=== PATIENT | male | born 2000 | race Caucasian/White ===

== ENCOUNTER 2021-01-17 00:30 | Observation (INO) ==
[2021-01-17] MEDS ORDERED: ALBUT/IPRATROP 3MG/0.5MG NEB 3 ML VIAL NEB STA (00:51)
--- NOTE | 2021-01-17 00:55 | Emergency Department Note ---
History of Present Illness General Chief complaint: Respiratory Problems Stated complaint: ASTHMA ATTACK-WHEEZING,TIGHTNESS IN CHEST Time Seen by Provider: 01/17/21 00:44 History of Present Illness This is a 20-year-old male with a history of asthma that presents to the emergency department via private vehicle with complaints of "asthma attack, wheezing, tightness in chest". The patient notes a history of asthma, last asthma attack being about 10 years ago. He no longer has a rescue inhaler. This evening he was participating in a game of basketball. Towards the end of the game he developed some wheezing that gradually worsened throughout the evening therefore prompting arrival here. He also notes some tightness in the chest and mild shortness of breath. He has felt similar with previous asthma exacerba tions. He denies any other pertinent past medical history, surgeries or allergies. No fevers or chills. He denies any current illness but does state that a few weeks ago he had cold-like symptoms. Home Medications Medication Instructions Recorded Confirmed Type No Known Home Medications 01/17/21 01/17/21 History Allergies Allergy/AdvReac Type Severity Reaction Status Date / Time No Known Allergies Allergy Unverified 01/17/21 01:45 Past Med/Surg History Medical History Asthma Surgical History No pertinent past surgical history Social History Smoking Status: Never smoker Feels Safe at Home: Yes Review of Systems A total of 10 systems reviewed and were otherwise negative Physical Exam Vital Signs Vital Signs - 24 hr 01/17/21 00:35 01/17/21 00:56 01/17/21 01:07 Temperature 37.0 C Temperature Source Temporal Artery Scan Pulse Rate 80 79 Pulse Rate [Finger] 78 Respiratory Rate 22 18 18 Blood Pressure 102/60 135/77 Blood Pressure [Right Arm] 126/61 Blood Pressure Mean 74 96 Blood Pressure Mean [Right Arm] 82 Pulse Oximetry 97 96 98 Oxygen Delivery Method Room Air Room Air Sepsis Recent Fever Within 48 Hours No Sepsis New/Unexplained Change in Mental Status No Sepsis Action Taken by Nursing No Action Required 01/17/21 01:21 01/17/21 01:30 01/17/21 02:00 Temperature Temperature Source Pulse Rate 86 85 Pulse Rate [Finger] Respiratory Rate 20 20 Blood Pressure 125/66 137/69 Blood Pressure [Right Arm] Blood Pressure Mean 85 91 Blood Pressure Mean [Right Arm] Pulse Oximetry 98 99 99 Oxygen Delivery Method Room Air Sepsis Recent Fever Within 48 Hours Sepsis New/Unexplained Change in Mental Status Sepsis Action Taken by Nursing 01/17/21 03:00 Temperature Temperature Source Pulse Rate 85 Pulse Rate [Finger] Respiratory Rate 24 Blood Pressure 132/66 Blood Pressure [Right Arm] Blood Pressure Mean 88 Blood Pressure Mean [Right Arm] Pulse Oximetry 99 Oxygen Delivery Method Sepsis Recent Fever Within 48 Hours Sepsis New/Unexplained Change in Mental Status Sepsis Action Taken by Nursing VITAL SIGNS - Vital signs and nursing notes were reviewed. Stable and afebrile. GENERAL -20-year-old male appearing his stated age who is in no acute distress. Communicates well with provider and answers questions appropriately. SKIN - Without rashes. No meningeal or petechial rash. HEAD - NC/AT. EYES - PERRL with EOMI bilaterally. Sclera anicteric. EARS - No deformities of external structures noted on gross examination bilaterally. NOSE - Midline and without cyanosis. No epistaxis or purulent drainage noted. MOUTH/OROPHARYNX - Without perioral cyanosis. Buccal mucosa pink and moist and without leukoplakia. Tongue midline with equal elevation of palate bilaterally. No tonsillar hypertrophy, erythema, or exudates noted. Good dentition noted. No drooling, stridor, trismus or tripoding. Normal phonation. NECK - Neck with FROM. No nuchal rigidity. LUNGS - Chest wall symmetric without accessory muscle use, intercostals retractions, or central cyanosis. Mild expiratory wheeze left greater than right. CARDIAC - RRR with S1/S2. No murmur, rubs, or gallops appreciated. EXTREMITIES - No clubbing or peripheral cyanosis. +5/5 strength noted in UE/LE bilaterally. NEUROLOGIC - Cranial nerves II through XII grossly intact. PSYCH - A&O, and cooperates fully with examiner. Pt is very pleasant and interacts well with examiner. Course Administered Medications Discontinued Medications Albuterol (Albut/Ipratrop 3mg/0.5mg Neb 3 Ml Vial) 3 ml NEB NOW STA Stop: 01/17/21 00:52 Last Admin: 01/17/21 01:18 Dose: 3 ml Documented by: [id number] Aspirin (Aspirin Chew 324 Mg) 324 mg PO NOW STA Stop: 01/17/21 03:39 Last Admin: 01/17/21 04:18 Dose: 324 mg Documented by: [id number] Colchicine (Colchicine 0.6 Mg Tab) 0.6 mg PO NOW ONE Stop: 01/17/21 03:39 Last Admin: 01/17/21 04:19 Dose: 0.6 mg Documented by: [id number] Dexamethasone 10 mg/ Syringe 2.5 mls @ 1 mls/min IV ONE ONE Stop: 01/17/21 03:40 Last Admin: 01/17/21 04:19 Dose: 1 mls/min Documented by: [id number] Ioversol (Optiray 320 125ml) 120 ml IV ONCE ONE Stop: 01/17/21 02:15 Last Admin: 01/17/21 02:14 Dose: 120 ml Documented by: [id number] Medical Decision Making Laboratory Data Result diagrams: 01/17/21 01:05 01/17/21 01:05 Lab Results 01/17/21 01/17/21 01/17/21 Range/Units 01:05 01:05 01:05 WBC 13.36 H (4.8-10.8) K/uL RBC 4.76 (4.7-6.1) M/uL Hgb 14.6 (14.0-18.0) g/dL Hct 41.5 L (42-52) % MCV 87.2 (80-100) fL MCH 30.7 (25-34) pg MCHC 35.2 (32-36) g/dL RDW Std Deviation 41.0 (36.4-46.3) fL RDW Coeff of Shanna 12.7 (11.5-14.5) % Plt Count 233 (130-400) K/uL MPV 11.0 H (7.4-10.4) fL Immature Gran % (Auto) 0.2 % Neut % (Auto) 76.4 % Lymph % (Auto) 15.3 % [place] % (Auto) 7.8 % Eos % (Auto) 0.2 % Baso % (Auto) 0.1 % Neut # (Auto) 10.20 H (1.4-6.5) K/uL Lymph # (Auto) 2.04 (1.2-3.4) K/uL [place] # (Auto) 1.04 H (0.11-0.59) K/uL Eos # (Auto) 0.03 (0-0.5) K/uL Baso # (Auto) 0.02 (0-0.2) K/uL Immature Gran # (Auto) 0.03 H (0.00-0.02) K/uL ESR 12 (0-15) mm/hr Sodium 138 (136-145) mmol/L Potassium 3.6 (3.5-5.1) mmol/L Chloride 105 (98-107) mmol/L Carbon Dioxide 25 (21-32) mmol/L Anion Gap 8.0 (3-11) BUN 28 H (7-18) mg/dl Creatinine 1.28 (0.6-1.4) mg/dl Est Cr Clr Drug Dosing 92.5 ml/min Est GFR ( Amer) 92.1 ml/min Est GFR (Non-Af Amer) 79.5 ml/min BUN/Creatinine Ratio 21.9 H (10-20) Glucose 89 (70-99) mg/dl Calcium 9.0 (8.5-10.1) mg/dl Total Bilirubin 0.6 (0.2-1) mg/dl AST 67 H (15-37) U/L ALT 37 (12-78) Alkaline Phosphatase 47 (45-117) U/L Troponin I 0.304 H* (0-0.045) ng/ml C-Reactive Protein < 0.29 (0-0.29) mg/dl Total Protein 8.1 (6.4-8.2) gm/dl Albumin 4.4 (3.4-5.0) gm/dl Globulin 3.7 (2.5-4.0) gm/dl Albumin/Globulin Ratio 1.2 (0.9-2) Anaplasma Smear Lyme Disease IgG Ab (Negative) Lyme Disease IgM Ab (Negative) SARS-CoV-2 (PCR) (Negative) Influenza Type A (PCR) (Neg) Influenza Type B (PCR) (Neg) RSV (RT-PCR) (Neg) 01/17/21 01/17/21 01/17/21 Range/Units 01:05 02:00 02:15 WBC (4.8-10.8) K/uL RBC (4.7-6.1) M/uL Hgb (14.0-18.0) g/dL Hct (42-52) % MCV (80-100) fL MCH (25-34) pg MCHC (32-36) g/dL RDW Std Deviation (36.4-46.3) fL RDW Coeff of Shanna (11.5-14.5) % Plt Count (130-400) K/uL MPV (7.4-10.4) fL Immature Gran % (Auto) % Neut % (Auto) % Lymph % (Auto) % [place] % (Auto) % Eos % (Auto) % Baso % (Auto) % Neut # (Auto) (1.4-6.5) K/uL Lymph # (Auto) (1.2-3.4) K/uL [place] # (Auto) (0.11-0.59) K/uL Eos # (Auto) (0-0.5) K/uL Baso # (Auto) (0-0.2) K/uL Immature Gran # (Auto) (0.00-0.02) K/uL ESR (0-15) mm/hr Sodium (136-145) mmol/L Potassium (3.5-5.1) mmol/L Chloride (98-107) mmol/L Carbon Dioxide (21-32) mmol/L Anion Gap (3-11) BUN (7-18) mg/dl Creatinine (0.6-1.4) mg/dl Est Cr Clr Drug Dosing ml/min Est GFR ( Amer) ml/min Est GFR (Non-Af Amer) ml/min BUN/Creatinine Ratio (10-20) Glucose (70-99) mg/dl Calcium (8.5-10.1) mg/dl Total Bilirubin (0.2-1) mg/dl AST (15-37) U/L ALT (12-78) Alkaline Phosphatase (45-117) U/L Troponin I (0-0.045) ng/ml C-Reactive Protein (0-0.29) mg/dl Total Protein (6.4-8.2) gm/dl Albumin (3.4-5.0) gm/dl Globulin (2.5-4.0) gm/dl Albumin/Globulin Ratio (0.9-2) Anaplasma Smear See Comment Lyme Disease IgG Ab Negative (Negative) Lyme Disease IgM Ab Negative (Negative) SARS-CoV-2 (PCR) POSITIVE A* (Negative) Influenza Type A (PCR) Negative (Neg) Influenza Type B (PCR) Negative (Neg) RSV (RT-PCR) Negative (Neg) 01/17/21 Range/Units 03:12 WBC (4.8-10.8) K/uL RBC (4.7-6.1) M/uL Hgb (14.0-18.0) g/dL Hct (42-52) % MCV (80-100) fL MCH (25-34) pg MCHC (32-36) g/dL RDW Std Deviation (36.4-46.3) fL RDW Coeff of Shanna (11.5-14.5) % Plt Count (130-400) K/uL MPV (7.4-10.4) fL Immature Gran % (Auto) % Neut % (Auto) % Lymph % (Auto) % [place] % (Auto) % Eos % (Auto) % Baso % (Auto) % Neut # (Auto) (1.4-6.5) K/uL Lymph # (Auto) (1.2-3.4) K/uL [place] # (Auto) (0.11-0.59) K/uL Eos # (Auto) (0-0.5) K/uL Baso # (Auto) (0-0.2) K/uL Immature Gran # (Auto) (0.00-0.02) K/uL ESR (0-15) mm/hr Sodium (136-145) mmol/L Potassium (3.5-5.1) mmol/L Chloride (98-107) mmol/L Carbon Dioxide (21-32) mmol/L Anion Gap (3-11) BUN (7-18) mg/dl Creatinine (0.6-1.4) mg/dl Est Cr Clr Drug Dosing ml/min Est GFR ( Amer) ml/min Est GFR (Non-Af Amer) ml/min BUN/Creatinine Ratio (10-20) Glucose (70-99) mg/dl Calcium (8.5-10.1) mg/dl Total Bilirubin (0.2-1) mg/dl AST (15-37) U/L ALT (12-78) Alkaline Phosphatase (45-117) U/L Troponin I 0.379 H* (0-0.045) ng/ml C-Reactive Protein (0-0.29) mg/dl Total Protein (6.4-8.2) gm/dl Albumin (3.4-5.0) gm/dl Globulin (2.5-4.0) gm/dl Albumin/Globulin Ratio (0.9-2) Anaplasma Smear Lyme Disease IgG Ab (Negative) Lyme Disease IgM Ab (Negative) SARS-CoV-2 (PCR) (Negative) Influenza Type A (PCR) (Neg) Influenza Type B (PCR) (Neg) RSV (RT-PCR) (Neg) Imaging Data Radiologist's Impression: Chest X-Ray 01/17/21 00:51 XR chest 1V portable CLINICAL HISTORY: wheezing. COMPARISON STUDY: No previous studies for comparison. TECHNIQUE: 1 view of the chest FINDINGS: Single frontal view of the chest demonstrates the cardiomediastinal silhouette to be within normal limits. The lungs are clear of alveolar opacities. There is no evidence for pleural effusion. There is no evidence for vascular congestion. There is no acute osseous pathology. IMPRESSION: No acute cardiopulmonary disease. ACT 112: Negative or not required by law. Electronically signed by: Jus Lopez M.D. 01/17/2021 7:12 AM Chest CTA 01/17/21 01:53 CT angio chest PE protocol CLINICAL HISTORY: dyspnea . Reported history of asthma. Wheezing COMPARISON STUDY: Portable chest from 01/17/2021 CT DOSE: 359.33 mGy.cm TECHNIQUE: CT Angio of the chest was performed.followed by image post processing with coronal, and sagittal MIP reformats. Contrast Volume: Optiray 320, 120 ml FINDINGS: Vasculature: There is homogeneous perfusion of the pulmonary vasculature bilaterally. No intraluminal filling defects or evidence for pulmonary embolus is seen. Airway: The airway is clear. No endobronchial lesion is identified. Lungs: There is very mild Central endobronchial thickening present. The lungs are otherwise clear of acute alveolar opacities, air bronchograms or pulmonary nodules. Pleura: There is no evidence for pleural effusion. There is no evidence for pneumothorax. Mediastinum: There is no evidence for pathologic adenopathy. The heart size is within normal limits. The thoracic aorta is within normal limits. There is no evidence for pericardial effusion. Upper abdomen:The adrenal glands are normal bilaterally. There is evidence for small sliding-type hiatal hernia. The stomach is distended with liquid and food stuff. Osseous structures: There is no acute osseous pathology. Impression: 1. No CTA evidence for pulmonary embolus. 2. Very mild Central endobronchial thickening. Otherwise, no acute chest disease. ACT 112: Negative or not required by law. Electronically signed by: Jus Lopez M.D. 01/17/2021 7:29 AM CTA CHEST: Some breathing motion artifact. No PE visualized. No aortic dissection or aneurysm. Lungs clear Radiologist: Saroj Benz M.D. Study ready at 02:17 and initial results transmitted at 03:00 [facility] Narrative Patient was seen and evaluated as above in room A02. Review was performed of triage nursing notes and vital signs. After obtaining a thorough history and physical examination the above work up was performed. Patient presents to us today with some wheezing that developed after playing basketball. Otherwise stable and well-appearing. Options of care were discussed with the patient. IV access was established. Labs were drawn. He was given a DuoNeb breathing treatment. Labs reveal leukocytosis 13.36 without significant anemia. BUN elevated at 28. Mild AST elevation at 67. Patient does have a troponin elevation at .304. Repeat troponin 0.379. EKG on arrival reveals sinus rhythm at a rate of 76 bpm. QTc 391. QRS 98. ST elevations noted. Do not suspect STEMI, patient denies any chest pain and is actually noting improvement upon arrival here to the ED in regard to his wheezing and shortness of breath. Chest x-ray negative. CTA was obtained of the chest and was negative for acute process. Covid testing positive. I suspect the patient is likely experiencing a Covid related myocarditis. I do believe he would benefit from inpatient management. Case discussed with the hospitalist. Please refer to further documentation regarding his stay. Case was discussed with the attending physician. An order was placed for continuous cardiac monitoring. The monitor shows a rate of 65 with sinus rhythm. GCS: 15 IMPRESSION: Chest Pain In the evaluation and treatment of this patient, the following differential diagnoses were considered: ND, ASC, Dysrhythmia, Angina, Mediastinitis, GERD, Esophagitis, PE, Pneumonia, myocarditis, bronchitis, Costochondritis, Rib Fracture, Zoster, among others Impression & Plan Acute myopericarditis, COVID-19, Elevated troponin I level Discharge Plan Visit Data Chief Complaint: Respiratory Problems Stated Complaint: ASTHMA ATTACK-WHEEZING,TIGHTNESS IN CHEST ED Provider: Day [facility] ED Midlevel Provider: Juan Manuel Elam Discharge Problem: Acute myopericarditis, COVID-19, Elevated troponin I level Patient Disposition: Admitted As Inpatient Condition: Good Discharge Instructions Interventions: ED Discharge Assessment Last Done: 01/17/21 05:40
[2021-01-17 01:17] LABS: Basophils # (auto) 0.02 K/uL (0-0.2); Basophils % (auto) 0.1 %; Eosinophils # (auto) 0.03 K/uL (0-0.5); Eosinophils % (auto) 0.2 %; Hematocrit (blood only) 41.5 % (42-52); Hemoglobin 14.6 g/dL (14.0-18.0); Immature Granulocytes # (auto) 0.03 K/uL (0.00-0.02); Immature Granulocytes % (auto) 0.2 %; Lymphocytes # (auto) 2.04 K/uL (1.2-3.4); Lymphocytes % (auto) 15.3 %; Mean Corpuscular Hemoglobin 30.7 pg (25-34); Mean Corpuscular Hgb Conc 35.2 g/dL (32-36); Mean Corpuscular Volume 87.2 fL (80-100); Monocytes # (auto) 1.04 K/uL (0.11-0.59); Monocytes % (auto) 7.8 %; Neutrophils % (auto) 76.4 %; Platelet Count 233 K/uL (130-400); RDW Coefficient of Variation 12.7 % (11.5-14.5); Red Blood Count 4.76 M/uL (4.7-6.1); White Blood Count 13.36 K/uL (4.8-10.8)
[2021-01-17 01:36] LABS: Alanine Aminotransferase 37 (12-78); Albumin Level 4.4 gm/dl (3.4-5.0); Aspartate Aminotransferase 67 U/L (15-37); BUN Creatinine Ratio 21.9 (10-20); Blood Urea Nitrogen 28 mg/dl (7-18); Carbon Dioxide 25 mmol/L (21-32); Chloride 105 mmol/L (98-107); Creatinine Clr Calc Pharmacy 92.5 ml/min; Est GFR (African American) 92.1 ml/min; Est GFR (Non-African American) 79.5 ml/min; Glucose 89 mg/dl (70-99); Potassium 3.6 mmol/L (3.5-5.1); Sodium 138 mmol/L (136-145)
[2021-01-17 01:44] LABS: Albumin Globulin Ratio 1.2 (0.9-2); Alkaline Phosphatase 47 U/L (45-117); Bilirubin,Total 0.6 mg/dl (0.2-1); Globulin 3.7 gm/dl (2.5-4.0); Total Protein 8.1 gm/dl (6.4-8.2); Troponin I 0.304 ng/ml (0-0.045)
[2021-01-17 02:11] LABS: C Reactive Protein < 0.29 mg/dl (0-0.29)
[2021-01-17] MEDS ORDERED: OPTIRAY 320 125ml IV ONE (02:14)
[2021-01-17 03:03] LABS: Influenza A virus by PCR Negative (Neg); Influenza B virus by PCR Negative (Neg); RSV by PCR Negative (Neg)
[2021-01-17 03:19] LABS: Lyme Ab IgG w/WB Rflx Negative (Negative); Lyme Ab IgM w/WB Rflx Negative (Negative)
[2021-01-17 03:21] LABS: SARS CoV2 RNA(COVID-19) InHosp POSITIVE (Negative)
[2021-01-17] MEDS ORDERED: COLCHICINE 0.6 MG TAB PO ONE (03:38)
[2021-01-17] MEDS ORDERED: dexAMETHasone 10 MG in SYRINGE 0 ML IV ONE (03:38)
[2021-01-17] MEDS ORDERED: ASPIRIN CHEW 324 MG PO STA (03:38)
--- NOTE | 2021-01-17 03:50 | History & Physical Report ---
Date of Service January 17, 2021 Assessment & Plan (1) COVID-19: Plan: COVID-19 acute myopericarditis/elevated troponin- The patient will be admitted to telemetry for serial cardiac enzymes, serial EKG's, cardiac rhythm monitoring and a 2-D echocardiogram with Dopplers. Dexamethasone 10 mg IV now, then 6 mg IV every morning Give aspirin 325 mg now, then p.o. twice daily Give colchicine 0.6 mg p.o. now, then p.o. twice daily Consult cardiology (2) Acute myopericarditis: Plan: See above (3) Elevated troponin I level: Plan: See above History of Present Illness Chief Complaint: The patient presents to the emergency department with acute onset of shortness of breath and tightness in chest shortly after playing basketball earlier in the day today. Primary Care Provider: [facility] The patient is a 20-year-old male with no significant past medical history, he notes a few weeks ago he had a brief episode of generalized muscle aches, shortness of breath, dyspnea on exertion and fatigue. This episode resolved without any treatment. He reports he has been playing basketball on a regular basis, and noted today the above symptoms. He denies any recent travels or sick exposures that he is aware of. He has a distant history of asthma, and thought he was may be having an asthma attack. Abnormal laboratories: WBC 13.36, creatinine 1.28. Lyme test negative, flu AMB negative, RSV negative, AST 67, troponin 0.304 Patient was COVID-19 positive Chest x-ray was negative, CT angiography chest negative for PE. Allergies Allergy/AdvReac Type Severity Reaction Status Date / Time No Known Allergies Allergy Unverified 01/17/21 01:45 Home Medications Medication Instructions Recorded Confirmed Type No Known Home Medications 01/17/21 01/17/21 History Past Med/Surg History Social History Smoking Status: Never smoker Feels Safe at Home: Yes Review of Systems Review of Systems: The patient denies palpitations, cough, lower extremity swelling, sore throat, fevers, chills, sweats, nausea, vomiting, diarrhea , co nstipation, abdominal pain, pelvic pain, blood in urine or stool, dysuria, urinary frequency or urgency, lightheadedness, dizziness, headache, memory loss, loss of consciousness, rash, abnormal bruising or bleeding, imbalance, focal or generalized weakness, numbness or tingling in arms or legs, generalized arthralgias or myalgias, back or neck pain, or night sweats. The review of systems is otherwise negative other than for that already noted above, and at least 10 systems have been reviewed. Physical Exam Physical Exam: The patient is awake, alert and oriented 3, well developed and well nourished, normocephalic and atraumatic, lying in bed and in no acute distress. HEENT--PERRL, EOMI, mucous membranes and oropharynx normal. Neck--supple. No JVD. No bruits. Thyroid normal, trachea midline, no adenopathy. Heart--normal S1 and S2. No murmurs, rubs or gallops. Lungs--clear bilaterally, no respiratory distress, no accessory muscle use. Abdomen--normal bowel sounds and soft. Nontender. Nondistended, no hernias or masses, no organomegaly. Extremities--no cyanosis or clubbing. No edema. There are good distal pulses b/l. Dermatologic--normal skin turgor, normal color, no abnormal lymph nodes, no rash. Neurologic--cranial nerves II through XII grossly intact. Rheumatologic--normal range of motion. Psychiatric--normal affect. Results & Data Results & Data ([facility]) Vital Signs (Past 12 Hours) Vital Signs Temp Pulse Pulse Resp BP BP Pulse Ox 01/17/21 03:00 85 24 132/66 99 01/17/21 02:00 85 20 137/69 99 01/17/21 01:30 86 20 125/66 99 01/17/21 01:21 98 01/17/21 01:07 79 18 135/77 98 01/17/21 00:56 78 18 126/61 96 01/17/21 00:35 37.0 C 80 22 102/60 97 Laboratory Results Laboratory Results WBC 13.36 K/uL (4.8-10.8) H 01/17/21 01:05 RBC 4.76 M/uL (4.7-6.1) 01/17/21 01:05 Hgb 14.6 g/dL (14.0-18.0) 01/17/21 01:05 Hct 41.5 % (42-52) L 01/17/21 01:05 MCV 87.2 fL (80-100) 01/17/21 01:05 MCH 30.7 pg (25-34) 01/17/21 01:05 MCHC 35.2 g/dL (32-36) 01/17/21 01:05 RDW Std Deviation 41.0 fL (36.4-46.3) 01/17/21 01:05 RDW Coeff of Shanna 12.7 % (11.5-14.5) 01/17/21 01:05 Plt Count 233 K/uL (130-400) 01/17/21 01:05 MPV 11.0 fL (7.4-10.4) H 01/17/21 01:05 Immature Gran % (Auto) 0.2 % 01/17/21 01:05 Neut % (Auto) 76.4 % 01/17/21 01:05 Lymph % (Auto) 15.3 % 01/17/21 01:05 [place] % (Auto) 7.8 % 01/17/21 01:05 Eos % (Auto) 0.2 % 01/17/21 01:05 Baso % (Auto) 0.1 % 01/17/21 01:05 Neut # (Auto) 10.20 K/uL (1.4-6.5) H 01/17/21 01:05 Lymph # (Auto) 2.04 K/uL (1.2-3.4) 01/17/21 01:05 [place] # (Auto) 1.04 K/uL (0.11-0.59) H 01/17/21 01:05 Eos # (Auto) 0.03 K/uL (0-0.5) 01/17/21 01:05 Baso # (Auto) 0.02 K/uL (0-0.2) 01/17/21 01:05 Immature Gran # (Auto) 0.03 K/uL (0.00-0.02) H 01/17/21 01:05 ESR 12 mm/hr (0-15) 01/17/21 01:05 Sodium 138 mmol/L (136-145) 01/17/21 01:05 Potassium 3.6 mmol/L (3.5-5.1) 01/17/21 01:05 Chloride 105 mmol/L (98-107) 01/17/21 01:05 Carbon Dioxide 25 mmol/L (21-32) 01/17/21 01:05 Anion Gap 8.0 (3-11) 01/17/21 01:05 BUN 28 mg/dl (7-18) H 01/17/21 01:05 Creatinine 1.28 mg/dl (0.6-1.4) 01/17/21 01:05 Est Cr Clr Drug Dosing 92.5 ml/min 01/17/21 01:05 Est GFR ( Amer) 92.1 ml/min 01/17/21 01:05 Est GFR (Non-Af Amer) 79.5 ml/min 01/17/21 01:05 BUN/Creatinine Ratio 21.9 (10-20) H 01/17/21 01:05 Glucose 89 mg/dl (70-99) 01/17/21 01:05 Calcium 9.0 mg/dl (8.5-10.1) 01/17/21 01:05 Total Bilirubin 0.6 mg/dl (0.2-1) 01/17/21 01:05 AST 67 U/L (15-37) H 01/17/21 01:05 ALT 37 (12-78) 01/17/21 01:05 Alkaline Phosphatase 47 U/L (45-117) 01/17/21 01:05 Troponin I 0.379 ng/ml (0-0.045) H* 01/17/21 03:12 C-Reactive Protein < 0.29 mg/dl (0-0.29) 01/17/21 01:05 Total Protein 8.1 gm/dl (6.4-8.2) 01/17/21 01:05 Albumin 4.4 gm/dl (3.4-5.0) 01/17/21 01:05 Globulin 3.7 gm/dl (2.5-4.0) 01/17/21 01:05 Albumin/Globulin Ratio 1.2 (0.9-2) 01/17/21 01:05 Anaplasma Smear See Comment 01/17/21 01:05 Lyme Disease IgG Ab Negative (Negative) 01/17/21 02:15 Lyme Disease IgM Ab Negative (Negative) 01/17/21 02:15 SARS-CoV-2 (PCR) POSITIVE (Negative) A* 01/17/21 02:00 Influenza Type A (PCR) Negative (Neg) 01/17/21 02:00 Influenza Type B (PCR) Negative (Neg) 01/17/21 02:00 RSV (RT-PCR) Negative (Neg) 01/17/21 02:00 Diagnostic Findings [facility] Patient: RISHABH SIMPSON (Male) : 89 Status: ER Date: 01/17/21 02:16 Room #: History: dyspnea Slices: [phone] Priors: Tech: [place] @ [phone] Exams: CTA CHEST Contrast: IV Amt: 120 ml optiray 320 Accession Numbers: [id number] Referring Physician: REFERRED SELF Preliminary Findings Only See Final Report For Complete Findings CTA CHEST: Some breathing motion artifact. No PE visualized. No aortic dissection or aneurysm. Lungs clear Radiologist: Saroj Benz M.D. Study ready at 02:17 and initial results transmitted at 03:00 *This report constitutes a preliminary interpretation only. Non-acute findings felt to be unrelated to the clinical presentation may not be discussed in this report. The study will be interpreted and a final report will be generated by the local Radiologist the following shift. To reach the [facility] radiology department call [phone]. If a discrepancy is found between the preliminary and final interpretations of this study, please notify us via our Client Portal at [email or web address]. You can also fax this report with a description of the discrepancy, or include the final report, to o mable nick fax number [phone]. If faxing, please indicate the severity of discrepancy using one of the following categories: [ ] 1 - Agree/Informational [ ] 2 - Unlikely to Affect Management [ ] 3 - Possible Eventual Change of Management [ ] 4 - Probable Immediate Change of Management For all other patient related information, please fax us at [phone]. [id number] Code Status & VTE Plan Code Status Full code VTE Prophylaxis Plan VTE Prophylaxis will be ordered: Yes PG Care Time/CCT Total # of Minutes Spent Total Time Spent with Patient: Total time spent is greater than 50% in coordination of care (as documented) at patient's floor/unit and/or counseling patient: Coding Level of Care Code 92724 Initial Inpt Care Lvl 3 Diagnoses COVID-19 U07.1 Acute myopericarditis I30.9 Elevated troponin I level R77.8
[2021-01-17] MEDS ORDERED: ONDANSETRON INJ 2 MG/ML 2 ML VIAL IV PRN (05:40)
--- NOTE | 2021-01-17 07:14 | XRay Report ---
XR chest 1V portable CLINICAL HISTORY: wheezing. COMPARISON STUDY: No previous studies for comparison. TECHNIQUE: 1 view of the chest FINDINGS: Single frontal view of the chest demonstrates the cardiomediastinal silhouette to be within normal li mits. The lungs are clear of alveolar opacities. There is no evidence for pleural effusion. There is no evidence for vascular congestion. There is no acute osseous pathology. IMPRESSION: No acute cardiopulmonary disease. ACT 112: Negative or not required by law. Electronically signed by: Jus Lopez M.D. 01/17/2021 7:12 AM
--- NOTE | 2021-01-17 07:30 | CT Scan Report ---
CT angio chest PE protocol CLINICAL HISTORY: dyspnea . Reported history of asthma. Wheezing COMPARISON STUDY: Portable chest from 01/17/2021 CT DOSE: 359.33 mGy.cm TECHNIQUE: CT Angio of the chest was performed.followed by image post processing with coronal, and s agittal MIP reformats. Contrast Volume: Optiray 320, 120 ml FINDINGS: Vasculature: There is homogeneous perfusion of the pulmonary vasculature bilaterally. No intraluminal filling defects or evidence for pulmonary embolus is seen. Airway: The airway is clear. No endobronchial lesion is identified. Lungs: There is very mild Central endobronchial thickening present. The lungs are otherwise clear of acute alveolar opacities, air bronchograms or pulmonary nodules. Pleura: There is no evidence for pleural effusion. There is no evidence for pneumothorax. Mediastinum: There is no evidence for pathologic adenopathy. The heart size is within normal limits. The thoracic aorta is within normal limits. There is no evidence for pericardial effusion. Upper abdomen:The adrenal glands are normal bilaterally. 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 The stomach is distended with liquid and food stuff. Osseous structures: There is no acute osseous pathology. Impression: 1. No CTA evidence for pulmonary embolus. 2. Very mild Central endobronchial thickening. Otherwise, no acute chest disease. ACT 112: Negative or not required by law. Electronically signed by: Jus Lopez M.D. 01/17/2021 7:29 AM
--- NOTE | 2021-01-17 11:12 | XCELERA ---
[id number]
--- NOTE | 2021-01-17 12:54 | Cardiology Consultation ---
Date of Consultation January 17, 2021 Assessment & Plan (1) Elevated troponin I level: -mild elevation of troponin could simply be related had the COVID infection. -EKG changes could simply be related to the COVID infection. -myocarditis seems unlikely as he is asymptomatic, has a normal ESR, and a normal echocardiogram. -no need for treatment with colchicine. -however, would proceed with caution after hospital discharge. -avoid NSAIDs, alcohol use, and exercise for 2 weeks. -virtual visit in 3 weeks (lives in [place], studying in [place] next semester). (2) Abnormal ECG: -anterior ST abnormality could simply be related to the COVID infection. -myocarditis or pericarditis seem unlikely as he is asymptomatic, has a normal ESR, and normal echocardiogram. (3) COVID-19: -treatment per the hospitalist team. History of Present Illness Attending Physician: Gustavo Amin MD History of Present Illness Mr. Crews is a 20-year-old male admitted yesterday after a short episode of shortness of breath and chest tightness. The patient was found to be COVID-19 positive. He was admitted to the hospital for observation. This consultation was ordered as he had an abnormal EKG and elevated troponin. The patient claims he was in his usual state of health until yesterday. The patient had finished a game of basketball with his friends. He then had the abrupt onset of shortness of breath, wheezing, and chest tightness. He felt that he was having a flare of his asthma. He became quite concerned and proceeded to the emergency room for further care. By the time he got to the emergency room, his symptoms were completely resolved. His COVID test was positive. Troponin was elevated at presentation at 0.304. His EKG noted an anterior ST abnormality. The patient has never known of a cardiac event. Currently, patient is resting comfortably in bed and without complaints of chest discomfort or dyspnea. We have had long discussion regarding the abnormal findings as described above. We have also discussed the possibility of COVID myocarditis. Past medical and surgical history 1. Asthma Social history Kalia studying [employer] at [employer]. Hails from [place], [place]. No tobacco Social alcohol Family history Parents and siblings are alive and well. Review of systems A 10 review systems was negative except that described above. Allergies Allergy/AdvReac Type Severity Reaction Status Date / Time No Known Allergies Allergy Unverified 12/08/21 01:45 Home Medications Medication Instructions Recorded Confirmed Type albuterol sulfate 90 mcg/actuation 2 inh INHALATION Q6H PRN #8.5 g 01/17/21 Rx aerosol inhaler (Proventil HFA) dexamethasone 6 mg tablet 6 mg PO DAILY #8 tab 01/17/21 Rx (Decadron) Patient History Medical History Asthma Surgical History No pertinent past surgical history Social History Smoking Status: Never smoker Hx Alcohol Use: No Hx Substance Use: No Preferred Language: Azeri Communication Ability: Effective Supervisor Boarding Required: No Beliefs That Will Affect Care: None Current Living Situation: Alone Feels Safe at Home: Yes Safety Concerns: Feels Safe At This Time Physical Exam Physical Exam: Exam per Lubna Calzada PA-C as patient in [facility] isolation. Results & Data ([facility]) Vital Signs (Past 12 Hours) Vital Signs Pulse Pulse Pulse Resp BP BP Pulse Ox 01/17/21 09:06 74 18 125/58 L 99 01/17/21 06:24 65 18 150/65 H 96 01/17/21 05:00 73 18 118/65 96 01/17/21 04:24 84 20 128/66 97 01/17/21 03:00 85 24 132/66 99 01/17/21 02:00 85 20 137/69 99 01/17/21 01:30 86 20 125/66 99 01/17/21 01:21 98 01/17/21 01:07 79 18 135/77 98 01/17/21 00:56 78 18 126/61 96 Laboratory Results CBC notes hemoglobin of 14.6, hematocrit 41.5, white count 13.3, and platelet count of 233,000. Electrolytes note a sodium of 138, potassium 3.6, chloride 105, bicarb 25, BUN 28, creatinine 1.28, and glucose of 89. Initial troponin was 0.304 with follow-up values of 0.379 and 0.172. ESR is normal at 12. Diagnostic Findings Initial EKG notes normal sinus rhythm with first-degree AV block and an anterior ST abnormality. Follow-up tracing is unchanged. Echocardiogram notes normal left ventricular systolic function with ejection fraction of 60-65%. There are no wall motion abnormalities. There was no valvular pathology. x-ray shows no acute disease. CT angiogram of the chest noted no pulmonary emboli. PG Care Time/CCT Total # of Minutes Spent Total Time Spent with Patient: Total time spent is greater than 50% in coordination of care (as documented) at patient's floor/unit and/or counseling patient: Coding Level of Care Code 81160 Inpt Consult Level 4 Diagnoses Elevated troponin I level R77.8 Abnormal ECG R94.31 COVID-19 U07.1
--- NOTE | 2021-01-17 15:53 | Electrocardiogram Report ---
Test Reason : Blood Pressure : / mmHG Vent. Rate : 076 BPM Atrial Rate : 076 BPM P-R Int : 222 ms QRS Dur : 098 ms QT Int : 348 ms P-R-T Axes : 085 -81 067 degrees QTc Int : 391 ms Sinus rhythm with 1st degree A-V block Left axis deviation Anterior ST abnormality Abnormal ECG No previous ECGs available Confirmed by Nick Haji ([id number]) on 01/17/2021 3:53:12 PM Referred By: REFERRED SELF Confirmed By:Nick Haji
--- NOTE | 2021-01-17 16:02 | Electrocardiogram Report ---
Test Reason : Blood Pressure : / mmHG Vent. Rate : 071 BPM Atrial Rate : 071 BPM P-R Int : 212 ms QRS Dur : 096 ms QT Int : 364 ms P-R-T Axes : 085 -85 060 degrees QTc Int : 395 ms Sinus rhythm with 1st degree A-V block ST elevation, consider early repolarization, pericarditis, or injury Abnormal ECG When compared with ECG of 17-JAN-2021 01:15, (unconfirmed) No significant change was found Confirmed by Nick Haji ([id number]) on 01/17/2021 4:02:36 PM Referred By: REFERRED SELF Confirmed By:Nick Haji
--- NOTE | 2021-01-17 18:24 | Discharge Summary ---
Date of Service January 17, 2021 Admission HPI Per Admitting Provider The patient is a 20-year-old male with no significant past medical history, he notes a few weeks ago he had a brief episode of generalized muscle aches, shortness of breath, dyspnea on exertion and fatigue. This episode resolved without any treatment. He reports he has been playing basketball on a regular basis, and noted today the above symptoms. He denies any recent travels or sick exposures that he is aware of. He has a distant history of asthma, and thought he was may be having an asthma attack. Abnormal laboratories: WBC 13.36, creatinine 1.28. Lyme test negative, flu AMB negative, RSV negative, AST 67, troponin 0.304 Patient was COVID-19 positive Chest x-ray was negative, CT angiography chest negative for PE. Principal Diagnosis 1. Acute COVID-19 2. Abnormal EKG 3. Elevated troponin Discharge Exam General: Resting comfortably in his hospital bed. NAD. HEENT: Head is AT/NC buccal mucosa is moist and pink Neck: No JVD. Negative hepatojugular reflex Cardiac: RRR without M/G/R Lungs: CTA without W/R/R Abdomen: Normoactive X4. Soft and nontender in all quadrants. Extremities: No peripheral clubbing cyanosis or edema Neuro: A&O X4 cranial nerves II through XII are grossly intact no focal neuro deficits Skin: No obvious skin lesions or rashes Psych: Appropriate affect pleasant and cooperative Discharge Data Allergies Allergy/AdvReac Type Severity Reaction Status Date / Time No Known Allergies Allergy Unverified 01/17/21 01:45 Consultations 01/17/21 03:06 ED Decision to Admit Stat 01/17/21 05:40 Consult Cardiology Routine Assessment & Plan (1) Elevated troponin I level: -mild elevation of troponin could simply be related had the COVID infection. -EKG changes could simply be related to the COVID infection. -myocarditis seems unlikely as he is asymptomatic, has a normal ESR, and a normal echocardiogram. -no need for treatment with colchicine. -however, would proceed with caution after hospital discharge. -avoid NSAIDs, alcohol use, and exercise for 2 weeks. -virtual visit in 3 weeks (lives in [place], studying in [place] next semester). (2) Abnormal ECG: -anterior ST abnormality could simply be related to the COVID infection. -myocarditis or pericarditis seem unlikely as he is asymptomatic, has a normal ESR, and normal echocardiogram. (3) COVID-19: -treatment per the hospitalist team. Ordered Studies 01/17/21 01:53 CT angio chest PE protocol Urgent Impression: 1. No CTA evidence for pulmonary embolus. 2. Very mild Central endobronchial thickening. Otherwise, no acute chest disease. Hospital Course (1) COVID-19: 20-year-old -[place]ien male with an underlying history of asthma presented with what he felt was a "asthma attack". Reports while playing basketball his chest felt tight Symptoms resolved without intervention prior to actually arriving at the ED (while in route) Patient was afebrile and hemodynamically stable. He was not hypoxic He did test positive for Covid He is fully vaccinated with [employer] (back in the spring) His EKG did show anterior septal ST abnormality and his troponin was slightly elevated at 0.304 Patient did not have any chest pain Chest x-ray showed no acute pathology CTA showed no evidence of PE with mild endobronchial thickening Patient was hospitalized and started on Decadron along with colchicine and a spirin for presumed underlying myocarditis Cardiology was consulted. Patient sed rate is only 12. His troponin has cycled and remains elevated at 0.37 but his third troponin has down trended and is 0.12 Despite the mildly elevated troponin and EKG changes, cardiology does not feel that this is consistent with myocarditis given the normal sed rate and lack of chest pain/symptoms (as updated literature does suggest that Covid can cause these EKG changes and mildly elevated troponin) Cardiology does not feel that continued colchicine is needed An echocardiogram was performed that shows no regional wall motion abnormalities. EF 60 to 65%. No significant valvular disease At this point time, patient is medically and hemodynamically stable for discharge to home. He is afebrile and hemodynamically stable. He is not requiring any oxygen. He has no adventitious breath sounds. He denies shortness of breath or chest pain and really has no symptoms to speak of at this time Patient will be discharged with a continued course of Decadron for a total of 10 days given his underlying history of asthma and risk of MIS/a or further inflammatory response leading to ARDS (although he is very stable without symptoms at this time Appreciate comanagement by cardiology. Discussed with Dr. Haji who will see patient in follow-up in approximately 2 weeks time Patient should return to the ED for any new or worsening symptoms (2) Elevated troponin I level: See above (3) Abnormal ECG: See above Total Time Total Time Spent Total Time Spent (In Minutes): 60 minutes including time spent with patient, coordination of care, discussion with cardiology, discussion with attending provider, and preparation of documentation Discharge Plan Discharge Items Patient Disposition: Home - Self-Care Reason For Visit: COVID-19 MYOPERICARDITIS Discharge Diagnosis: 1. Covid-19 (resulting in an elevated troponin and EKG changes) Condition on Discharge: Good Activity: As commented below Activity Comment: light activity until seen in follow up by cardiology Non-emergency contact: Primary Care Provider and Truck Packer Call non-emergency contact if: you have any medication questions and your symptoms worsen Follow-up/Referrals: Nick Haji MD [Physician] - ([facility] will be in touch with you after your discharge. They will call you directly to schedule.) [facility] [Primary Care Provider] - Diet: Regular Addtl Attending Provider Instructions: - you presented to the hospital with symptoms consistent with that you thought to be an asthma attack - you were found to have Covid. In addition, your troponin (which is an enzymes found in your blood usually from heart injury) and mild EKG changes. These are thought to be all a result of Covid - your Echocardiogram (ultrasound of your heart) was stone cold normal - you are not having chest pain or issues with your breathing - you are being send on on Decadron (which is a steroid) and you should take this once a day for the next 8 days (start with tomorrow's dose). This does not TREAT covid but help with the immune/inflammatory response that your body can go through as a consequence of covid - you were also prescribed a rescue inhaler. I know that you probably do not have an up-to-date one of these as you report that your asthma hasn't really been an issue in 10 years. Use this as needed - you are to avoid exercise/heavy activity and alcohol until you are seen in follow up by Cardiology (which is being arranged as a virtual visit between Livia and ) - please return to the ED for any new or worsening symptoms Pending Studies at Discharge: No Stand-Alone Forms: [facility], Work/School Release Medications and DC Order Prescriptions: New dexamethasone [Decadron] 6 mg tablet 6 mg PO DAILY Qty: 8 RF: 0 albuterol sulfate [Proventil HFA] 90 mcg/actuation HFA aerosol inhaler 2 inh inhalation Q6H PRN (Reason: shortness of breath or wheezing) Qty: 8.5 RF: 0 Discharge Orders: Discharge Order (Routine); Ordered 01/17/21 Ordered By: Lubna Calzada Admission Data Admit Date/Time: 01/17/21 03:48 Attending Provider: Gustavo Amin Admit Provider: Gustavo Amin Primary Care Provider: [facility] Other Providers: Nick Haji ; Gustavo Amin Other Interventions: Discharge Summary Assessment (RN) Last Done: 01/17/21 14:11 Supervising Physician Co-Signing Physician Notes Patient seen and examined on the day of discharge. I agree with the discharge summary by Lubna COLE. I have reviewed the chart including labs, imaging and plans for discharge. patient feeling well, no chest pain at all, no dyspnea, no fever/chills reviewed the lab values and imaging, discussed with Dr. Haji - COVID 19 infection, elevated troponin complete a course of dexamethasone no clear evidence of myocarditis, echocardiogram shows normal EF, no chest pain no hypoxia or dyspnea at this time follow up with cardiology in 2 weeks Coding Level of Care Code D/C DAY MANAGEMENT >30 MINS Diagnoses COVID-19 U07.1 Elevated troponin I level R77.8 Abnormal ECG R94.31
[2021-01-17] MEDS ORDERED: ASPIRIN 325 MG ECTAB PO SCH (21:00)
[2021-01-18] MEDS ORDERED: dexAMETHasone 6 MG in SYRINGE 0 ML IV SCH (08:00)
--- NOTE | 2021-01-29 11:15 | Coding Query ---
CODING QUERY To promote full compliance with coding requirements relating to patient care, provider participation is requested in all cases of cook specialty uncertainty. Please assist us with the question(s) below: Coding Question(s): 1. There is documentation, as on the Discharge Summary of, "myocarditis or pericarditis seem unlikely", and, "no clear evidence of myocarditis", and "Patient was hospitalized and started on Decadron along with colchicine and aspirin for presumed underlying myocarditis". It is not clear, if myocarditis, and/or pericarditis were completely ruled-out or were still possible diagnosis. Please specify below, in your clinical opinion. (x ) Possible Myocarditis was treated during the admission ( ) Possible Pericarditis was treated during the admission ( ) Myocarditis and Pericarditis are Ruled-Out ( ) Other: Please specify 2. There is documentation of Asthma with documentation on the ER of , "He has felt similar with previous asthma exacerbations", and the H&P documents, "He has a distant history of asthma, and thought he was may be having an asthma attack", and the Discharge Summary documents, "you presented to the hospital with symptoms consistent with that you thought to be an asthma attack". Please specify below, in your clinical opinion, regarding Asthma. ( ) Asthma with Asthma Attack/Exacerbation ( x) Asthma with No Exacerbation ( ) Other: Please Specify Physician's Response(s): Thank you Gertrude Rodríguez Principal Diagnosis: "that condition established after study, to be chiefly responsible for occasioning the admission of the patient to the hospital for care." Co-Existing Principal Diagnosis: "when two or more diagnoses equally meet the criteria for principal diagnosis as determined by the circumstances of admission, diagnostic work up, and/or therapy provided, and the Alphabetic Index, Tabular List, or another coding guideline does not provide sequencing direction, any one of the diagnoses may be sequenced first." "When the physician has documented what appears to be a current diagnosis in the body of the record, but has not included the diagnosis in the final diagnostic statement, the physician should be asked whether the diagnosis should be added." (Source Coding Clinic 2 QTR90. p3-4) IDRIS
== END 2021-01-17 14:46 | disposition home or self-care (01) | DRG 177 ==
LOC: ED 00:30 → EDINP 03:48 → INTOOBSV 03:48 → EDINP 05:40